=== PATIENT | female | born 1940 | race Caucasian/White ===

== ENCOUNTER 2019-02-26 02:49 | Emergency (ER) | payer OTHER ==
--- OUTSIDE RECORDS SUMMARY | 2019-02-26 02:52 | XMS REPORT ---
:1940 [facility] [address] [place] [address] Care Team Providers Name Role Phone Unavailable Unavailable Unavailable Payers Payer Name Policy Type Policy Number Effective Date Expiration Date Problems This patient has no known problems. Allergies, Adverse Reactions, Alerts Allergy Name Allergy Status Severity Reaction(s) Onset Inactive Treating Comments Type Date Date Clinician azithromycin DA Active [place] 2013-02 2-06 00:00: 00 Sulfa DA Active [place] 2013-02 (Sulfonamide 2-05 Antibiotics) 00:00: 00 Medications This patient has no known medications.
[2019-02-26 04:43] LABS: Absolute Lymphocytes (CBC) 1.9 K/uL (0.7-4.9); Basophils % 1.2 % (0-1.3); Hematocrit 37.1 % (36.0-45.0); Lymphocytes % 33.3 % (15.3-44.8); RBC Red Blood Cell Count 4.28 M/uL (3.86-4.86)
[2019-02-26 04:45] LABS: Protime INR 1.02
[2019-02-26] MEDS ORDERED: MORPHINE 2 MG/ML SYR ONE (04:45)
[2019-02-26] MEDS ORDERED: ONDANSETRON 4 MG/2 ML VIAL ONE (04:45)
[2019-02-26 04:58] LABS: Urine Blood NEGATIVE (NEG); Urine Glucose NEGATIVE (NEG); Urine Protein NEGATIVE (NEG)
[2019-02-26 05:08] LABS: ALT/SGPT 20 U/L (12-78); AST/SGOT 16 U/L (15-37); Albumin 3.3 g/dL (3.4-5.0); Alkaline Phosphatase 64 U/L (45-117); BUN Blood Urea Nitrogen 11 mg/dL (7-18); Bicarbonate 26 mmol/L (21-32); Bilirubin Direct 0.1 mg/dL (0-0.2); Bilirubin Total 0.5 mg/dL (0.2-1.0); Glucose Level 126 mg/dL (74-106); Magnesium 2.1 mg/dL (1.8-2.4); NT PRO-BNP 57 pg/mL (<450); Sodium Level 140 mmol/L (136-145); Troponin (Emerg Dept Use Only) < 0.02 ng/mL (0.0-0.045)
[2019-02-26 05:28] LABS: Urine Bacteria >50 /HPF (<20); Urine Culture Reflex Order NOT NEEDED; Urine RBC <5 /HPF (NONE SEEN)
--- NOTE | 2019-02-26 05:30 | ER ---
Nurse's Notes [facility] Name: Sheri Lipscomb Age: 78 yrs Sex: Female : 1940 Arrival Date: 02/26/2019 Time: 02:54 Bed 6 Private MD: Diagnosis: Cervical spondylosis. Cystitis Presentation: 02/26 03:16 Presenting complaint: Patient states: Reports she has been unable to control her ea bladder for about a month, and has been having neck, back and shoulder pain for about a week. Pt reports the pain has not improved and symptoms are just getting worse. States "my hair is falling out and I think all of this has a lot to do with my medications." Pt reports she stopped taking all her meds about 1 week ago. Transition of care: patient was not received from another setting of care. Onset of symptoms was February 26, 2019. Risk Assessment: Do you want to hurt yourself or someone else? Patient reports no desire to harm self or others. Initial Sepsis Screen: Does the patient meet any 2 criteria? No. Patient's initial sepsis screen is negative. Does the patient have a suspected source of infection? No. Patient's initial sepsis screen is negative. Care prior to arrival: None. 03:16 Method Of Arrival: Ambulatory ea 03:16 Acuity: JOEL 3 ea Historical: - Allergies: 03:20 Sulfa (Sulfonamide Antibiotics); ea - Home Meds: 03:20 Metformin Oral [Active]; hypertension meds [Active]; ea - PMHx: 03:20 "cancer 2004"; ea - PSHx: 03:20 Hysterectomy; ea - Immunization history:: Adult Immunizations up to date. - Social history:: Smoking status: Patient/guardian denies using tobacco. - Ebola Screening: : No symptoms or risks identified at this time. Screenin:18 Abuse screen: Denies threats or abuse. Nutritional screening: No deficits noted. ea Tuberculosis screening: No symptoms or risk factors identified. Fall Risk None identified. Assessment: 03:21 General: Appears in no apparent distress. Behavior is calm, cooperative, appropriate ea for age. Pain: Complains of pain in posterior aspect of left shoulder, back of neck and back. Neuro: Level of Consciousness is awake, alert, obeys commands, Oriented to person, place, time, situation. Cardiovascular: Patient's skin is warm and dry. Respiratory: Airway is patent Respiratory effort is even, unlabored, Respiratory pattern is regular, symmetrical. Derm: Skin is pink, warm \\T\\ dry. Musculoskeletal: Circulation, motion, and sensation intact. 04:58 Reassessment: Patient and/or family updated on plan of care and expected duration. Pain ea level reassessed. Patient is alert, oriented x 3, equal unlabored respirations, skin warm/dry/pink. 05:43 Reassessment: Patient and/or family updated on plan of care and expected duration. Pain ea level reassessed. Patient is alert, oriented x 3, equal unlabored respirations, skin warm/dry/pink. Discharge instruction given to patient, verbalized the understanding of instruction, pt left ED ambulatory accompanied by spouse. Vital Signs: 03:18 BP 170 / 127; Pulse 72; Resp 18; Temp 98; Pulse Ox 98% ; Weight 75.3 kg; Height 5 ft. 8 ea in. (172.72 cm); Pain 10/10; 03:20 BP 160 / 84; Pulse 78; Resp 18; Pulse Ox 98% on R/A; lp1 03:33 BP 155 / 93; Pulse 83; Resp 18; Pulse Ox 97% on R/A; lp1 04:58 BP 162 / 80; Pulse 80; Resp 18; Pulse Ox 100% on R/A; ea 05:25 BP 143 / 76; Pulse 71; Resp 18; Temp 97.8; Pulse Ox 99% on R/A; ea 03:18 Body Mass Index 25.24 (75.30 kg, 172.72 cm) ea ED Course: 02:54 Patient arrived in ED. ds1 02:59 Curt Jacob MD is Attending Physician. pkl 03:04 Zora Carter, WILLIAMS is Primary Nurse. ea 03:18 Triage completed. ea 03:20 Arm band placed on right wrist. Patient placed in an exam room, on a stretcher, on ea pulse oximetry. 03:20 Patient has correct armband on for positive identification. Placed in gown. Bed in low ea position. Call light in reach. Side rails up X2. 03:58 XRAY Chest (1 view) In Process Unspecified. EDMS 04:21 CT Head C Spine In Process Unspecified. EDMS 04:36 Inserted saline lock: 22 gauge in right antecubital area, using aseptic technique. ea 05:40 No provider procedures requiring assistance completed. IV discontinued, intact, ea bleeding controlled, No redness/swelling at site. Pressure dressing applied. 05:50 Primary Nurse role handed off by Zora Carter, RN philip Administered Medications: 04:56 Drug: morphine 2 mg Route: IVP; Site: right antecubital; ea 05:25 Follow up: Response: No adverse reaction; RASS: Alert and Calm (0) ea 04:56 Drug: Zofran 4 mg Route: IVP; Site: right antecubital; ea 05:25 Follow up: Response: No adverse reaction ea 05:31 Drug: Cipro 500 mg Route: PO; ea 05:46 Follow up: Response: No adverse reaction ea 05:53 Drug: [place] (7.5 mg-325 mg) 1 tabs {Note: RASS 0.} Route: PO; ea 05:54 Follow up: Response: No adverse reaction; Medication administered at discharge. ea Outcome: 05:27 Discharge ordered by . [email or web address] 05:40 Discharged to home ambulatory. ea 05:45 Condition: stable ea 05:45 Discharge instructions given to patient, Instructed on discharge instructions, follow up and referral plans. medication usage, Demonstrated understanding of instructions, follow-up care, medications, Prescriptions given X 2. 05:47 Patient left the ED. ea 05:54 Patient left the ED. ea Addendum: 03/01/2019 07:52 Addendum: Culture Results: Positive urine culture. No further action required. Bacteria e b sensitive to prescribed antibiotic. Signatures: Dispatcher [employer] EDMD Curt Jacob MD MD pkl [place], Demi ds1 Keara Bailey RN RN lp1 Zora Carter, WILLIAMS RN Rissa Sanchez
[2019-02-26] MEDS ORDERED: CIPROFLOXACIN HCL 500 MG TAB ONE (05:32)
--- NOTE | 2019-02-26 05:32 | EDPHYS ---
Physician Documentation [facility] Name: Sheri Lipscomb Age: 78 yrs Sex: Female : 1940 Arrival Date: 02/26/2019 Time: 02:54 Bed 6 Private MD: ED Physician Curt Jacob HPI: 02/26 04:47 This 78 yrs old Female presents to ER via Ambulatory with complaints of Pain pkl all Over, Urinary Frequency. 04:47 The patient presents with urinary symptoms, frequency, hesitancy. Onset: The pkl symptoms/episode began/occurred 1 month(s) ago, and became worse today. Associated signs and symptoms: Pertinent positives: neck pain and shoulder pain. Also complained of her hairs falling out. Historical: - Allergies: 03:20 Sulfa (Sulfonamide Antibiotics); ea - Home Meds: 03:20 Metformin Oral [Active]; hypertension meds [Active]; ea - PMHx: 03:20 "cancer 2004"; ea - PSHx: 03:20 Hysterectomy; ea - Immunization history:: Adult Immunizations up to date. - Social history:: Smoking status: Patient/guardian denies using tobacco. - Ebola Screening: : No symptoms or risks identified at this time. ROS: 04:47 Positive for urinary symptoms, urinary frequency, bladder incontinence. pkl 04:47 Eyes: Negative for injury, pain, redness, and discharge, ENT: Negative for injury, pain, and discharge. 04:47 Neck: Positive for pain with movement. 04:47 Cardiovascular: Negative for chest pain. 04:47 Respiratory: Negative for cough, shortness of breath. 04:47 Abdomen/GI: Negative for abdominal pain, nausea, vomiting, and diarrhea. 04:47 Back: Negative for acute changes. 04:47 : 04:47 MS/extremity: Negative for acute changes. 04:47 Skin: Negative for rash. 04:47 Neuro: Negative for altered mental status, loss of consciousness. Exam: 04:47 Head/Face: Normocephalic, atraumatic. Eyes: Pupils equal round and reactive to light, pkl extra-ocular motions intact. Lids and lashes normal. Conjunctiva and sclera are non-icteric and not injected. Cornea within normal limits. Periorbital areas with no swelling, redness, or edema. ENT: Nares patent. No nasal discharge, no septal abnormalities noted. Tympanic membranes are normal and external auditory canals are clear. Oropharynx with no redness, swelling, or masses, exudates, or evidence of obstruction, uvula midline. Mucous membranes moist. 04:47 Neck: ROM/movement: pain, that is moderate, with any movement. 04:47 Chest/axilla: Exam negative for acute changes. 04:47 Cardiovascular: Rate: normal, Rhythm: regular. 04:47 Respiratory: the patient does not display signs of respiratory distress, Respirations: normal, Breath sounds: are clear throughout. 04:47 Abdomen/GI: Bowel sounds: normal, Palpation: abdomen is soft and non-tender, in all quadrants. 04:47 Back: Exam negative for acute changes. 04:47 : Bladder: tenderness, that is mild. 04:47 Musculoskeletal/extremity: Exam is negative for acute changes. 04:47 Skin: Exam negative for rash. 04:47 Neuro: Orientation: is normal, Mentation: is normal, Cranial nerves: grossly normal, Motor: is normal. Vital Signs: 03:18 BP 170 / 127; Pulse 72; Resp 18; Temp 98; Pulse Ox 98% ; Weight 75.3 kg; Height 5 ft. 8 ea in. (172.72 cm); Pain 10/10; 03:20 BP 160 / 84; Pulse 78; Resp 18; Pulse Ox 98% on R/A; lp1 03:33 BP 155 / 93; Pulse 83; Resp 18; Pulse Ox 97% on R/A; lp1 04:58 BP 162 / 80; Pulse 80; Resp 18; Pulse Ox 100% on R/A; ea 05:25 BP 143 / 76; Pulse 71; Resp 18; Temp 97.8; Pulse Ox 99% on R/A; ea 03:18 Body Mass Index 25.24 (75.30 kg, 172.72 cm) ea MDM: 02:59 Patient medically screened. pkl 05:26 Data reviewed: vital signs, nurses notes, lab test result(s), EKG, radiologic studies, pkl CT scan, plain films. 02/26 03:38 Order name: Basic Metabolic Panel; Complete Time: 05:14 pkl 02/26 03:38 Order name: CBC with Diff; Complete Time: 04:55 pkl 02/26 03:38 Order name: LFT's; Complete Time: 05:14 pkl 02/26 03:38 Order name: Magnesium; Complete Time: 05:14 pkl 02/26 03:38 Order name: NT PRO-BNP; Complete Time: 05:14 pkl 02/26 03:38 Order name: PT-INR; Complete Time: 04:55 pkl 02/26 03:38 Order name: Troponin (emerg Dept Use Only); Complete Time: 05:14 pkl 02/26 03:38 Order name: XRAY Chest (1 view) pkl 02/26 03:38 Order name: CT Head C Spine pkl 02/26 03:39 Order name: TSH; Complete Time: 05:14 pkl 02/26 03:43 Order name: Urine Dipstick--Ancillary (enter results); Complete Time: 05:05 mt 02/26 04:43 Order name: Urine Microscopic Only; Complete Time: 05:32 mt 02/26 04:45 Order name: Urine Culture pkl 02/26 03:38 Order name: EKG; Complete Time: 03:40 pkl 02/26 03:38 Order name: Cardiac monitoring; Complete Time: 04:57 pkl 02/26 03:38 Order name: EKG - Nurse/Tech; Complete Time: 04:57 pkl 02/26 03:38 Order name: IV Saline Lock; Complete Time: 04:57 pkl 02/26 03:38 Order name: Labs collected and sent; Complete Time: 04:57 pkl 02/26 03:38 Order name: O2 Per Protocol; Complete Time: 04:57 pkl 02/26 03:38 Order name: O2 Sat Monitoring; Complete Time: 04:57 pkl Administered Medications: 04:56 Drug: morphine 2 mg Route: IVP; Site: right antecubital; ea 05:25 Follow up: Response: No adverse reaction; RASS: Alert and Calm (0) ea 04:56 Drug: Zofran 4 mg Route: IVP; Site: right antecubital; ea 05:25 Follow up: Response: No adverse reaction ea 05:31 Drug: Cipro 500 mg Route: PO; ea 05:46 Follow up: Response: No adverse reaction ea 05:53 Drug: [place] (7.5 mg-325 mg) 1 tabs {Note: RASS 0.} Route: PO; ea 05:54 Follow up: Response: No adverse reaction; Medication administered at discharge. ea Disposition: 02/26/19 05:27 Discharged to Home. Impression: Cervical spondylosis. Cystitis. - Condition is Stable. - Prescriptions for Ultram 50 mg Oral Tablet - take 1 tablet by ORAL route every 8 hours As needed; 15 tablet. Cipro 500 mg Oral Tablet - take 1 tablet by ORAL route every 12 hours for 7 days; 14 tablet. - Medication Reconciliation Form, Thank You Letter, Antibiotic Education, Prescription Opioid Use form. - Follow up: Private Physician; When: 2 - 3 days; Reason: Re-evaluation by your physician. - Problem is new. - Symptoms have improved. Signatures: Dispatcher [employer] EDMS Curt Jacob MD MD pkZora Dawson RN RN philip Corrections: (The following items were deleted from the chart) 05:47 05:27 02/26/2019 05:27 Discharged to Home. Impression: Cervical spondylosis. Cystitis. ea Condition is Stable. Forms are Medication Reconciliation Form, Thank You Letter, Antibiotic Education, Prescription Opioid Use. Follow up: Private Physician; When: 2 - 3 days; Reason: Re-evaluation by your physician. Problem is new. Symptoms have improved. pkl 05:54 05:47 02/26/2019 05:27 Discharged to Home. Impression: Cervical spondylosis. Cystitis. ea Condition is Stable. Prescriptions for Ultram 50 mg Oral Tablet - take 1 tablet by ORAL route every 8 hours As needed; 15 tablet, Cipro 500 mg Oral Tablet - take 1 tablet by ORAL route every 12 hours for 7 days; 14 tablet. and Forms are Medication Reconciliation Form, Thank You Letter, Antibiotic Education, Prescription Opioid Use. Follow up: Private Physician; When: 2 - 3 days; Reason: Re-evaluation by your physician. Problem is new. Symptoms have improved. ea
[2019-02-26] MEDS ORDERED: HYDROCODONE/APAP 7.5/325 MG TAB ONE (05:55)
[2019-02-26 05:59] VITALS: BP 143/76; TEMP 97.8; O2SAT 99
--- NOTE | 2019-02-26 07:47 | RAD REPORT ---
EXAM DESCRIPTION: Luis Alberto Single View02/26/2019 3:58 am CLINICAL HISTORY: Hypertension COMPARISON: none FINDINGS: The lungs appear clear of acute infiltrate. The heart is normal size IMPRESSION: No acute abnormalities displayed
--- NOTE | 2019-02-26 08:58 | EKG ---
Test Date: 2019-02-26 Test Time: 04:52:38 Continuous Mining Operator: URIAH MEASUREMENT RESULTS: Intervals: Rate: 69 [place]: 160 QRSD: 86 QT: 402 QTc: 430 [place]: P: 29 [place]: 160 QRS: 6 T: 33 INTERPRETIVE STATEMENTS: Normal sinus rhythm Possible Anterior infarct, age undetermined Abnormal ECG No previous ECG available for comparison Electronically Signed On 02-26-19 08:57:37 BOILER HOUSE MECHANIC by Quincy Smyth
--- NOTE | 2019-02-26 10:43 | RAD REPORT ---
EXAM DESCRIPTION: CT - Head C Spine Mpr Wo Con - 02/26/2019 7:02 am CLINICAL HISTORY: Headache, neck pain COMPARISON: None. TECHNIQUE: CT Head and Cervical spine WO contrast on 02/26/2019 3:38 AM OBSTETRICIAN AND GYNAECOLOGIST This exam was performed according to our departmental dose-optimization program, which includes autom ated exposure control, adjustment of the mA and/or kV according to patient size and/or use of iterati ve reconstruction technique. FINDINGS: Brain: There is no acute hemorrhage, mass effect or midline shift. Pederson-white differentiat ion is preserved. There is no hydrocephalus. There is no significant volume loss for age. The calvarium is intact. Orbits and globes are unremarkable. The paranasal sinuses are clear. Mastoid air cells are clear. Cervical Spine: There is no acute fracture. Alignment is anatomic. There is moderate bilateral facet arthritis especially in the upper cervical spine. Disc spaces are maintained. Vertebral body heights are preserved. Soft tissues are unremarkable. IMPRESSION: No acute postraumatic findings. Electronically signed by: Richie Finch MD 02/26/2019 4:28 AM OBSTETRICIAN AND GYNAECOLOGIST Due to temporary technical issues with the PACS/Fluency reporting system, reports are being signed by the in house radiologist as a courtesy to ensure prompt reporting. The interpreting radiologist is f ully responsible for the content of the report.
== END 2019-02-26 05:54 | disposition home or self-care (01) ==
LOC: ER 02:49
DX: N30.90 Cystitis, unspecified without hematuria (principal); M47.892 Other spondylosis, cervical region; Z88.2 Allergy status to sulfonamides; Z85.9 Personal history of malignant neoplasm, unspecified
CPT/HCPCS: 93005; 87088; 85025; 87086; 80048; 36415; 83735; 85610; 80076; 84443; 87077; 87186; 84484; 83880; 70450; 72125; 71045; 96375; 96374; 99284; J2270; J2405; 81003; 81015

== ENCOUNTER 2020-06-29 12:06 | Emergency (ER) | payer OTHER ==
--- OUTSIDE RECORDS SUMMARY | 2020-06-29 12:08 | XMS REPORT | Continuity of Care Document ---
:1940 Author Organization [facility] t Address [address] [place] [address] Care Team Providers Name Role Phone Unavailable Unavailable Unavailable Payers Payer Name Policy Type Policy Number Effective Date Expiration Date S ource Problems This patient has no known problems. Allergies, Adverse Reactions, Alerts Allergy Allergy Status Severity Reaction(s) Onset Inactive Treating Comm ents Source Name Type Date Date Clinician azithrom DA Active [place] 2013-02 [facility] DA [facility] [place] 2013[facility] Sulfa Adverse Active rash [facility] ent Clinics Medications Ordered Filled Start Stop Current Ordering Indication Dosage Frequency Signature Comments Components Source Medication Medication Date Date Medication? Clinician (SIG) Name Name Pulse Pulse 2019-0 Yes Na Bray as [facility] Oximeter Oximeter 4-24 directed [facility] - For Finger For Finger 00:00: M emoria 00 [facility] ent Clinics Thermometer Thermometer 2019-0 Yes Na Bray as [facility] 4-24 [facility] Procedures This patient has no known procedures. Encounters Start End Encounter Admission Attending Care Care Encounter Source Date/Time Date/Time Type Type Clinicians Facility Department ID 2020-06-23 2020-06-23 Outpatient [facility] [id number] [facility] 2020-06-16 2020-06-16 Out[facility] [id number] [facility] 2020-06-11 2020-06-11 Out[facility] [id number] [facility] 2020-06-09 2020-06-09 Out[facility] [id number] [facility] 2020-06-05 2020-06-05 Outpatient [facility] [id number] [facility] 2020-06-05 2020-06-05 Out[facility] [id number] [facility] 2020-04-20 2020-04-20 Out[facility] [id number] [facility] 2020-03-16 2020-03-16 Out[facility] [id number] [facility] 2020-01-14 2020-01-14 Out[facility] [id number] [facility] 2019-12-31 2019-12-31 Outpatient [facility] [id number] [facility] 2019-12-19 2019-12-19 Outpatient [facility] [id number] [facility] 2019-12-17 2019-12-17 Out[facility] [id number] [facility] 2019-12-12 2019-12-12 Out[facility] [id number] [facility] 2019-12-06 2019-12-06 Out[facility] [id number] [facility] 2019-12-01 2019-12-01 Outpatient [facility] [id number] [facility] 2019-06-14 2019-06-14 [facility] [id number] [facility] 14[facility]36:00 14:36:00 [facility] [employer] [facility] Out[facility] Clin[facility] 2019-06-03 2019-06-03 [facility] [id number] [address] 15:58:00 15:58:00 [facility] [employer] [facility] Clin[facility] 2019-05-02 2019-05-02 [facility] [id number] 11:20:00 11:20:00 [facility] [employer] [facility] Clin[facility] 2019-04-16 2019-04-16 [facility] [id number] 10:00:00 10:00:00 [facility] [employer] [facility] Clinics Results This patient has no known results.
[2020-06-29 16:19] LABS: Absolute Lymphocytes (CBC) 2.6 K/uL (0.7-4.9); Basophils % 1.8 % (0-1.3); Hematocrit 41.2 % (36.0-45.0); MPV 9.1 fL (7.6-11.3)
[2020-06-29 16:30] LABS: Urine Blood Negative (Negative); Urine Glucose Negative (Negative); Urine Protein Negative (Negative); Urine Specific Gravity 1.015 (1.005-1.030); Urine pH 5.5 (5.0-7.0)
[2020-06-29 16:57] LABS: Urine Bacteria <20 /HPF (<20); Urine Mucus 1+ /HPF (NONE SEEN); Urine RBC <5 /HPF (NONE SEEN)
[2020-06-29 17:47] LABS: Albumin 3.9 g/dL (3.4-5.0); Bilirubin Direct 0.2 mg/dL (0-0.2); Bilirubin Total 0.6 mg/dL (0.2-1.0); Potassium 3.9 mmol/L (3.5-5.1); Protein, Total 7.4 g/dL (6.4-8.2)
[2020-06-29 17:54] LABS: Protime INR 0.99
--- NOTE | 2020-06-29 18:30 | ER ---
Nurse's Notes [facility] Name: Sheri Lipscomb Age: 79 yrs Sex: Female : 1940 Arrival Date: 06/29/2020 Time: 12:07 Bed 6 Private MD: Diagnosis: Spontaneous ecchymoses Presentation: 06/29 12:45 Chief complaint: Patient states: "I am bruising all across my stomach and on my upper jd3 left inner thigh. I did not injure myself, so I don't know why I am having this bruising. it just itches really bad, no pain.". Coronavirus screen: At this time, the client does not indicate any symptoms associated with coronavirus-19. Ebola Screen: Patient negative for fever greater than or equal to 101.5 degrees Fahrenheit, and additional compatible Ebola Virus Disease symptoms. Initial Sepsis Screen: Does the patient meet any 2 criteria? No. Patient's initial sepsis screen is negative. Does the patient have a suspected source of infection? No. Patient's initial sepsis screen is negative. Risk Assessment: Do you want to hurt yourself or someone else? Patient reports no desire to harm self or others. Onset of symptoms was June 29, 2020. 12:45 Method Of Arrival: Ambulatory j 12:45 Acuity: JOEL 3 jd3 Historical: - Allergies: 12:49 Sulfa (Sulfonamide Antibiotics); jd3 12:49 Nitrofurantoin; jd3 - Home Meds: 12:49 Simvastatin Oral [Active]; Enalapril Oral [Active]; metoprolol tartrate Oral [Active]; jd3 - PMHx: 12:49 "cancer 2004"; UTI; Hypertension; High Cholesterol; jd3 - PSHx: 12:49 Hysterectomy; jd3 - Immunization history:: Adult Immunizations up to date. - Social history:: Smoking status: Patient/guardian denies using tobacco, but has a distant history of tobacco abuse. Screenin:21 Abuse screen: Denies threats or abuse. Nutritional screening: No deficits noted. ll1 Tuberculosis screening: No symptoms or risk factors identified. Fall Risk IV access (20 points). Total Vu Fall Scale indicates No Risk (0-24 pts). Assessment: 16:19 General: Appears in no apparent distress. Behavior is calm, cooperative, appropriate ll1 for age. Pain: Denies pain. GI: Bowel sounds present X 4 quads. Abd is soft and non tender X 4 quads. Reports 3 small areas of bruising across mid abdomen. Derm: Reports Bruising to R inner thigh, no known trauma. States it itches, no pain. No blood thinners. Injury Description: Bruise unknown trauma. 17:15 Reassessment: No changes from previously documented assessment. Patient and/or family ll1 updated on plan of care and expected duration. Pain level reassessed. 18:15 Reassessment: No changes from previously documented assessment. Patient and/or family ll1 updated on plan of care and expected duration. Pain level reassessed. Vital Signs: 12:49 BP 157 / 81; Pulse 70; Resp 17 S; Temp 97.9(TE); Pulse Ox 99% on R/A; Weight 79.38 kg jd3 (R); Height 5 ft. 8 in. (172.72 cm) (R); Pain 3/10; 18:40 BP 159 / 88; Pulse 69; Resp 16; Pulse Ox 99% ; Pain 9/10; ll1 12:49 Body Mass Index 26.61 (79.38 kg, 172.72 cm) jd3 ED Course: 12:07 Patient arrived in ED. as 12:47 Triage completed. jd3 12:50 Arm band placed on. jd3 14:53 Patient's name was called from ER lobby. No response. aa5 15:45 Tu Ramirez NP is PHCP. pm1 15:45 Gustavo Elias MD is Attending Physician. pm1 15:47 Bird Grimes, WILLIAMS is Primary Nurse. ll1 16:10 Inserted saline lock: 22 gauge in left antecubital area, using aseptic technique. Blood ll1 collected. 16:21 Patient has correct armband on for positive identification. Call light in reach. Side ll1 rails up X 1. Pulse ox on. NIBP on. 17:23 Basic Metabolic Panel Sent. 5 17:23 PT-INR Sent. mh5 17:23 Basic Metabolic Panel Sent. 5 17:23 CBC with Diff Sent. 5 17:24 Hepatic Function Sent. mh5 18:29 Sharron Bray MD is Referral Physician. pm1 18:41 IV discontinued, intact, bleeding controlled, No redness/swelling at site. Pressure ll1 dressing applied. 18:41 No provider procedures requiring assistance completed. ll1 Administered Medications: No medications were administered Outcome: 18:30 Discharge ordered by MD. pm1 18:41 Discharged to home ambulatory. ll1 18:41 Condition: stable 18:41 Discharge instructions given to patient, Instructed on discharge instructions, follow up and referral plans. Demonstrated understanding of instructions, follow-up care. 18:42 Patient left the ED. ll1 Signatures: Beatriz Macdonald Audri, RN RN aa5 Tu Ramirez NP ASSISTANT PROJECT ENGINEER pm1 Petty Macdonald Jonathon, RN RN [email or web address] Bird Grimes RN RN ll1
--- NOTE | 2020-06-29 18:30 | EDPHYS ---
Physician Documentation [facility] Name: Sheri Lipscomb Age: 79 yrs Sex: Female : 1940 Arrival Date: 06/29/2020 Time: 12:07 Bed 6 Private MD: ED Physician Gustavo Elias HPI: 06/29 15:55 This 79 yrs old Female presents to ER via Ambulatory with complaints of pm1 Bruising to groin and abdomen. 15:55 Patient noticed bruising to her right upper thigh and abdomen yesterday. Onset: The pm1 symptoms/episode began/occurred yesterday. Severity of symptoms: in the emergency department the symptoms are unchanged Pain is currently a 0 / 10. The patient has not experienced similar symptoms in the past. The patient has been recently seen by a physician: the patient's primary care provider, Dr. Katarina SILVERIO last month. Patient was concerned about possible reactions to two abx for UTI so she did not complete them. Reports occasional burning with urination. Patient does not take any blood thinners. 15:55 Bruising not painful or raised. Describes as itchy. pm1 Historical: - Allergies: 12:49 Sulfa (Sulfonamide Antibiotics); jd3 12:49 Nitrofurantoin; jd3 - Home Meds: 12:49 Simvastatin Oral [Active]; Enalapril Oral [Active]; metoprolol tartrate Oral [Active]; jd3 - PMHx: 12:49 "cancer 2004"; UTI; Hypertension; High Cholesterol; jd3 - PSHx: 12:49 Hysterectomy; jd3 - Immunization history:: Adult Immunizations up to date. - Social history:: Smoking status: Patient/guardian denies using tobacco, but has a distant history of tobacco abuse. ROS: 15:55 Constitutional: Negative for fever, chills, and weight loss, Eyes: Negative for injury, pm1 pain, redness, and discharge, ENT: Negative for injury, pain, and discharge, Neck: Negative for injury, pain, and swelling, Cardiovascular: Negative for chest pain, palpitations, and edema, Respiratory: Negative for shortness of breath, cough, wheezing, and pleuritic chest pain, Abdomen/GI: Negative for abdominal pain, nausea, vomiting, diarrhea, and constipation, Back: Negative for injury and pain, MS/Extremity: Negative for injury and deformity. 15:55 Neuro: Negative for headache, weakness, numbness, tingling, and seizure. 15:55 : Positive for burning with urination, Negative for flank pain. 15:55 Skin: Positive for ecchymosis, of the abdomen and right leg. Exam: 15:55 Constitutional: This is a well developed, well nourished patient who is awake, alert, pm1 and in no acute distress. Head/Face: Normocephalic, atraumatic. Eyes: Pupils equal round and reactive to light, extra-ocular motions intact. Lids and lashes normal. Conjunctiva and sclera are non-icteric and not injected. Cornea within normal limits. Periorbital areas with no swelling, redness, or edema. ENT: Nares patent. No nasal discharge, no septal abnormalities noted. Tympanic membranes are normal and external auditory canals are clear. Oropharynx with no redness, swelling, or masses, exudates, or evidence of obstruction, uvula midline. Mucous membranes moist. Neck: Trachea midline, no thyromegaly or masses palpated, and no cervical lymphadenopathy. Supple, full range of motion without nuchal rigidity, or vertebral point tenderness. No Meningismus. 15:55 Back: No spinal tenderness. No costovertebral tenderness. Full range of motion. 15:55 Cardiovascular: Rate: normal, Rhythm: regular, Pulses: no pulse deficits are appreciated, Edema: is not appreciated. 15:55 Respiratory: Exam negative for acute changes, respiratory distress, shortness of breath, Breath sounds: are clear throughout. 15:55 Abdomen/GI: Inspection: 1 cm circular bruise just left of midline under her pants garter and belt line. Flat, non-tender, Palpation: abdomen is soft and non-tender, in all quadrants. 15:55 Skin: Appearance: normal except for affected area, ecchymosis, noted on the, medial aspect of right thigh, 4 cm x 8 cm. Flat, non-tender. Vital Signs: 12:49 BP 157 / 81; Pulse 70; Resp 17 S; Temp 97.9(TE); Pulse Ox 99% on R/A; Weight 79.38 kg jd3 (R); Height 5 ft. 8 in. (172.72 cm) (R); Pain 3/10; 18:40 BP 159 / 88; Pulse 69; Resp 16; Pulse Ox 99% ; Pain 9/10; ll1 12:49 Body Mass Index 26.61 (79.38 kg, 172.72 cm) jd3 MDM: 15:54 Patient medically screened. pm1 18:26 Data reviewed: vital signs. Data interpreted: Pulse oximetry: on room air is 99 %. pm1 Interpretation: normal. Counseling: I had a detailed discussion with the patient and/or guardian regarding: the historical points, exam findings, and any diagnostic results supporting the discharge/admit diagnosis, lab results, the need for outpatient follow up, to return to the emergency department if symptoms worsen or persist or if there are any questions or concerns that arise at home. 06/29 15:55 Order name: Basic Metabolic Panel pm1 06/29 15:55 Order name: CBC with Diff pm1 06/29 15:55 Order name: Hepatic Function; Complete Time: 17:58 pm1 06/29 15:55 Order name: PT-INR; Complete Time: 17:58 pm1 06/29 15:55 Order name: Basic Metabolic Panel; Complete Time: 17:58 EDMS 06/29 15:55 Order name: CBC with Automated Diff; Complete Time: 16:49 EDMS 06/29 15:55 Order name: IV Saline Lock; Complete Time: 15:56 pm1 06/29 15:55 Order name: Labs collected and sent; Complete Time: 15:56 pm1 06/29 16:25 Order name: Urine Dipstick-Ancillary (obtain specimen); Complete Time: 16:28 pm1 06/29 16:25 Order name: Urine Microscopic Only; Complete Time: 17:19 pm1 06/29 16:26 Order name: Labs - recollect needed: recollect lav, blue and green top; Complete Time: bd 16:28 06/29 16:29 Order name: Urine Dipstick-Ancillary; Complete Time: 16:34 EDMS 06/29 16:57 Order name: Urine Culture EDMS Administered Medications: No medications were administered Disposition: 19:02 Co-signature as Attending Physician, Gustavo Elias MD. rn Disposition: 06/29/20 18:30 Discharged to Home. Impression: Spontaneous ecchymoses. - Condition is Stable. - Discharge Instructions: Hematoma. - Medication Reconciliation Form, Thank You Letter, Antibiotic Education, Prescription Opioid Use form. - Follow up: Emergency Department; When: As needed; Reason: Worsening of condition. Follow up: Sharron Bray MD; When: 2 - 3 days; Reason: Recheck today's complaints, Continuance of care, Re-evaluation by your physician. - Problem is new. - Symptoms have improved. Signatures: Dispatcher [employer] EDMS Hoa Hidalgo Roman, MD MD rn Marinas, Patrick, FARM CONTRACTOR FARM [employer]OR pm1 Devon Fernández RN RN jBird Dennis RN RN ll1 Corrections: (The following items were deleted from the chart) 18:42 18:30 06/29/2020 18:30 Discharged to Home. Impression: Spontaneous ecchymoses. ll1 Condition is Stable. Forms are Medication Reconciliation Form, Thank You Letter, Antibiotic Education, Prescription Opioid Use. Follow up: Emergency Department; When: As needed; Reason: Worsening of condition. Follow up: Sharron Bray; When: 2 - 3 days; Reason: Recheck today's complaints, Continuance of care, Re-evaluation by your physician. Problem is new. Symptoms have improved. pm1
[2020-06-29 19:52] VITALS: TEMP 97.9; O2SAT 99
[2020-06-29 19:54] VITALS: BP 159/88
== END 2020-06-29 18:42 | disposition home or self-care (01) ==
LOC: ER 12:06
DX: R23.3 Spontaneous ecchymoses (principal); I10 Essential (primary) hypertension; E78.00 Pure hypercholesterolemia, unspecified; Z88.2 Allergy status to sulfonamides; Z88.8 Allergy status to other drugs, medicaments and biological substances
CPT/HCPCS: 36415; 80048; 80076; 81003; 81015; 85025; 85610; 87086; 87088; 99283